=== PATIENT | male | born 1965 | race Two or more races ===

== ENCOUNTER 2018-04-10 09:51 | Day surgery (SDC) | payer OTHER ==
[2018-04-10] MEDS ORDERED: PROPOFOL 40 ML (11:49)
== END 2018-04-10 13:44 | disposition home or self-care (01) ==
LOC: GIL 09:51
DX: K92.1 Melena (principal); D12.5 Benign neoplasm of sigmoid colon; K64.8 Other hemorrhoids; K29.60 Other gastritis without bleeding
CPT/HCPCS: 43239; 88305